=== PATIENT | male | born 1970 | race Caucasian/White ===

== ENCOUNTER 2017-06-20 09:45 | Emergency (ER) | payer SELFPAY ==
[~2017-06-20] VITALS: Ht 180.3 cm; Wt 104.5 kg
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
[2017-06-20 09:56] VITALS: BP 126/89; PULSE 86; RESP 18; O2SAT 98
--- NOTE | 2017-06-20 10:39 | DRSVH ---
PROCEDURE: X-RAY CHEST, TWO VIEWS ([id number]) INDICATIONS: trauma TECHNIQUE: 2 views of the chest were acquired. COMPARISON: None. FINDINGS: Surgical changes and devices: None. Lungs and pleura: No pleural effusions or pneumothorax. Lungs are clear. Mediastinum: Mediastinal contours are normal. Heart size is normal. Bones and chest wall: No displaced fractures. No suspicious bony abnormalities. Soft tissues appea r unremarkable. IMPRESSION: 1. No definite acute traumatic abnormality. Dictated by: Skip Denton M.D. on 06/20/2017 at 10:36 Approved by: Skip Denton M.D. on 06/20/2017 at 10:37
[2017-06-20 11:59] VITALS: BP 132/77; PULSE 79; RESP 15; O2SAT 96
--- NOTE | 2017-06-20 15:20 | DRSVH ---
PROCEDURE: X-RAY RIGHT SHOULDER, MINIMUM TWO VIEWS ([id number]) INDICATIONS: trauma TECHNIQUE: 3 views of the shoulder were acquired. COMPARISON: None. FINDINGS: Bones: No fractures or dislocations. There is minimal acromioclavicular joint degeneration. No mary picious bony lesions. Visualized ribs appear intact. Soft tissues: No suspicious soft tissue calcifications. IMPRESSION: 1. No fracture or subluxation. Dictated by: Skip Denton M.D. on 06/20/2017 at 15:18 Approved by: Skip Denton M.D. on 06/20/2017 at 15:18
== END 2017-06-20 13:05 | disposition home or self-care (01) ==
LOC: SED 09:45
DX: S40.011A Contusion of right shoulder, initial encounter (principal); R07.89 Other chest pain; M54.6 Pain in thoracic spine; W22.8XXA Striking against or struck by other objects, initial encounter; Y93.89 Activity, other specified; Y99.0 Civilian activity done for income or pay; Y92.821 Forest as the place of occurrence of the external cause; Z88.0 Allergy status to penicillin; Z88.8 Allergy status to other drugs, medicaments and biological substances
CPT/HCPCS: 71020; 73030; 96372; 99284; J1885